=== PATIENT | female | born 1985 | race Caucasian/White ===

== ENCOUNTER 2017-12-24 15:35 | Observation (INO) | payer MEDICAID ==
[~2017-12-24 15:35] MED LIST: IBUPROFEN600 MG PO; PERCOCET 5-3251 TAB PO; PRENATAL COMPLE1 TAB PO
[2017-12-24 18:59] LABS: ALBUMIN 2.9 g/dL (3.4-5.0); ALKALINE PHOSPHATASE 100 U/L (46-116); ALT (SGPT) 19 U/L (10-68); CALC OSMOLALITY 269 mosm/kg (275-300); CALCIUM 8.4 mg/dL (8.5-10.1); CARBON DIOXIDE 21.6 mmol/L (21.0-32.0); CHLORIDE - SERUM 105 mmol/L (98-107); CREATININE - SERUM 0.8 mg/dL (0.6-1.3); GLUCOSE 80 mg/dL (74-106); POTASSIUM - SERUM 3.8 mmol/L (3.5-5.1); PROTEIN - SERUM 6.8 g/dL (6.4-8.2); SODIUM 136 mmol/L (136-145); UREA NITROGEN 11 mg/dL (7-18); eGFR NON AFRICAN AMERICAN 87 mL/min (90-120)
[2017-12-24 19:12] LABS: BASOPHILS 0.2 % (0-2); HEMOGLOBIN 13.3 g/dL (12-16); IMMATURE GRANULOCYTES 1.4 % (0-5); LYMPHOCYTES 14.6 % (15-50); MCH 31.1 pg (26.0-34.0); MCHC 34.1 g/dL (31.0-37.0); MCV 91.1 fL (80.0-100.0); MEAN PLATELET VOLUME 11.4 fL (7.4-10.4); MONOCYTES 4.7 % (2-11); NEUTROPHILS 78.1 % (40-80); PLATELET COUNT 208 10x3/uL (130-400); RBC 4.28 10x6/uL (4.00-5.40); RDW 13.6 % (11.5-14.5); WBC 12.1 10x3/uL (4.8-10.8)
[2017-12-24 19:21] LABS: HIV 1 & 2- RAPID SCREEN NEGATIVE (NEGATIVE)
[2017-12-24 19:54] LABS: BILIRUBIN - TOTAL 0.08 mg/dL (0.2-1.3)
[2017-12-24 20:01] LABS: APPEARANCE CLOUDY (CLEAR); COLOR YELLOW (YELLOW); SPECIFIC GRAVITY 1.015 (1.005-1.020)
[2017-12-24 20:02] LABS: BILIRUBIN NEGATIVE (NEGATIVE); GLUCOSE 100 mg/dL (NEGATIVE); KETONE NEGATIVE (NEGATIVE); NITRITE NEGATIVE (NEGATIVE); PROTEIN 1+ mg/dL (NEGATIVE); UROBILINOGEN NORMAL (NORMAL)
[2017-12-24 20:03] LABS: WHITE CELLS - URINE 0-5 /hpf (0-5)
[2017-12-24 20:04] LABS: BACTERIA MODERATE /hpf (NONE SEEN)
[2017-12-24 21:24] LABS: UDS - AMPHET NEGATIVE QUAL (NEGATIVE); UDS - BARB NEGATIVE QUAL (NEGATIVE); UDS - BENZO NEGATIVE QUAL (NEGATIVE); UDS - COCAINE NEGATIVE QUAL (NEGATIVE); UDS - OPIATE NEGATIVE QUAL (NEGATIVE); UDS - PCP NEGATIVE QUAL (NEGATIVE); UDS - THC NEGATIVE QUAL (NEGATIVE)
[2017-12-27 06:15] LABS: RAPID PLASMA REAGIN Non Reactive (Non Reactive)
[2017-12-27 11:15] LABS: HEPATITIS C ANTIBODY <0.1 (0.0-0.9)
[2017-12-27 12:17] LABS: RUBELLA IGG 2.72 index (Immune >0.99)
[2017-12-28 21:08] LABS: CHLAMYDIA TRACHOMATIS, NAA Negative (Negative)
== END 2017-12-25 19:35 | disposition home or self-care (01) ==
LOC: D.LDO 15:35 → D.LD 23:12 → OBSVTIME 12-25 01:50 → D.LD 12-25 19:35 → D.LDO 12-25 19:35
PROVIDERS: Obstetrics & Gynecology
DX: O26.893 Other specified pregnancy related conditions, third trimester (principal); Z3A.39 39 weeks gestation of pregnancy

== ENCOUNTER → 2018-01-20 16:45 | Outpatient (CLI) | payer MEDICAID ==
[~2018-01-20] VITALS: Ht 161.3 cm; Wt 81.6 kg
[2018-01-20 17:07] VITALS: BP 111/60; Ht 161.3 cm; Wt 81.6 kg
== END | disposition home or self-care (01) ==
LOC: D.LDO 16:45 → D.LABREF 16:45
DX: O26.893 Other specified pregnancy related conditions, third trimester (principal); Z3A.38 38 weeks gestation of pregnancy

== ENCOUNTER 2018-01-31 07:15 | Inpatient (IN) | payer MEDICAID ==
[~2018-01-31] VITALS: Ht 161.3 cm; Wt 81.6 kg
--- NOTE | ~2018-01-31 | DS ---
PATIENT:JAVIER PHELPS :83 MEDICAL RECORD: [id number] DISCHARGE SUMMARY ADMISSION DATE: 01/31/18 DISCHARGE DATE: 02/01/18 DATE OF ADMISSION: 01/31/2018 DATE OF DISCHARGE: 02/01/2018 ADMISSION DIAGNOSIS: Active labor at term. DISCHARGE DIAGNOSIS: Mother delivered at term. PROCEDURE: Vaginal delivery. ATTENDING: Rocío Mendieta MD HISTORY OF PRESENT ILLNESS AND SUMMARY OF HOSPITALIZATION: Please see the H&P in the chart. The patient was admitted in active labor on the . The patient went on to deliver vaginally without an epidural. At the time of discharge, she is doing well with no complaints of pain. The patient will receive Depo-Provera for her contraception. Standard precautions have been reviewed, and she has been asked to follow up in the clinic in 6 weeks. TRANSINT:[id number] Voice Confirmation ID: [id number] DOCUMENT ID: [id number] ROCÍO MENDIETA MD at 1731 CC: [id number] DICTATION DATE: 02/01/18 1227 FINISHING MACHINE OPERATOR AUTOMATIC: 02/02/18 0050 DIS IN 02/01/18 [id number] [place] [address]
--- NOTE | ~2018-01-31 | OP ---
PATIENT NAME: JAVIER PHELPS MEDICAL RECORD: [id number] :83 LOCATION:[id number] ADMISSION DATE:01/31/18 SURGEON: INOCENTE WILKINSON MD DATE OF OPERATION: 01/31/2018 DELIVERY NOTE PREDELIVERY DIAGNOSIS: Active labor at 40 weeks. POSTDELIVERY DIAGNOSES: 1. Active labor at 40 weeks. 2. Shoulder dystocia. PROCEDURE: Vaginal with alleviation of shoulder dystocia. ATTENDING SURGEON: Inocente Wilkinson MD ANESTHETIC: None. FINDINGS: Female , vertex presentation, Apgars are 9 and 9. Shoulder dystocia alleviated with Korey and suprapubic pressure. Standard gentle attempt at traction without increased force is attempted and fundal pressure was applied. Placenta is delivered spontaneous and intact. No laceration. ESTIMATED BLOOD LOSS: 300 cc. DISPOSITION: Mother and infant recovered in the room. TRANSINT:[id number] Voice Confirmation ID: [id number] DOCUMENT ID: [id number] INOCENTE WILKINSON MD at 1631 CC: [id number] DICTATION DATE: 02/24/18 1326 FIRE CHIEF DEPUTY: 02/24/18 1520 DIS IN 02/01/18 [facility] [address] [place] [address]
[2018-01-31 08:58] LABS: HEMATOCRIT 38.5 % (36.0-48.0); HEMOGLOBIN 13.2 g/dL (12-16); MCHC 34.3 g/dL (31.0-37.0); MCV 93.2 fL (80.0-100.0); MEAN PLATELET VOLUME 12.2 fL (7.4-10.4); RBC 4.13 10x6/uL (4.00-5.40); RDW 14.2 % (11.5-14.5); WBC 19.2 10x3/uL (4.8-10.8)
[2018-01-31 11:13] LABS: UDS - AMPHET NEGATIVE QUAL (NEGATIVE); UDS - BARB NEGATIVE QUAL (NEGATIVE); UDS - BENZO NEGATIVE QUAL (NEGATIVE); UDS - COCAINE NEGATIVE QUAL (NEGATIVE); UDS - OPIATE NEGATIVE QUAL (NEGATIVE); UDS - PCP NEGATIVE QUAL (NEGATIVE)
[2018-01-31 11:28] LABS: UDS - THC POSITIVE QUAL (NEGATIVE)
[2018-01-31 12:22] VITALS: BP 134/85; Ht 161.3 cm; Wt 81.6 kg
[2018-01-31 12:30] VITALS: BP 132/85
[2018-01-31 19:30] VITALS: BP 120/70
[2018-02-01 06:12] LABS: BASOPHILS 0.2 % (0-2); EOSINOPHILS 1.3 % (0-7); HEMATOCRIT 35.8 % (36.0-48.0); IMMATURE GRANULOCYTES 1.7 % (0-5); LYMPHOCYTES 13.4 % (15-50); MCH 31.3 pg (26.0-34.0); MCHC 33.5 g/dL (31.0-37.0); MCV 93.5 fL (80.0-100.0); MEAN PLATELET VOLUME 11.5 fL (7.4-10.4); MONOCYTES 4.5 % (2-11); NEUTROPHILS 78.9 % (40-80); PLATELET COUNT 194 10x3/uL (130-400); RBC 3.83 10x6/uL (4.00-5.40); RDW 14.4 % (11.5-14.5); WBC 16.8 10x3/uL (4.8-10.8)
[2018-02-01 07:25] VITALS: BP 117/72
[2018-02-01 07:32] LABS: RAPID PLASMA REAGIN Non Reactive (Non Reactive)
[2018-02-03 13:20] LABS: UDSC - AMPHET Negative ng/mL (Cutoff=1000); UDSC - BARB Negative ng/mL (Cutoff=300); UDSC - BENZO Negative ng/mL (Cutoff=300); UDSC - COC Negative ng/mL (Cutoff=300); UDSC - METH Negative ng/mL (Cutoff=300); UDSC - OPIATES Negative ng/mL (Cutoff=300); UDSC - PCP Negative ng/mL (Cutoff=25); UDSC - PROPOXY Negative ng/mL (Cutoff=300); UDSC - THC Positive (Cutoff=50)
== END 2018-02-01 15:55 | disposition home or self-care (01) | DRG 807 ==
LOC: D.LD 07:15
PROVIDERS: Obstetrics & Gynecology
PROC: 10E0XZZ Delivery of Products of Conception, External Approach (ICD-10-PCS; principal; 2018-01-31)
DX: O48.0 Post-term pregnancy (principal); O99.334 Smoking (tobacco) complicating childbirth; O66.0 Obstructed labor due to shoulder dystocia; Z37.0 Single live birth; Z3A.40 40 weeks gestation of pregnancy

== ENCOUNTER 2019-11-18 18:18 | Inpatient (IN) | payer MEDICAID ==
[~2019-11-18] VITALS: Ht 161.3 cm; Wt 88.6 kg
[2019-11-18] MEDS ORDERED: PREPLUS CA-FE1 EACH PO (18:28)
[2019-11-18 18:29] VITALS: BP 119/70; BMI 52.1
[2019-11-18 19:05] LABS: UDS - AMPHET NEGATIVE QUAL (NEGATIVE); UDS - BARB NEGATIVE QUAL (NEGATIVE); UDS - BENZO NEGATIVE QUAL (NEGATIVE); UDS - COCAINE NEGATIVE QUAL (NEGATIVE); UDS - OPIATE NEGATIVE QUAL (NEGATIVE); UDS - PCP NEGATIVE QUAL (NEGATIVE); UDS - THC NEGATIVE QUAL (NEGATIVE)
[2019-11-18 19:32] LABS: HEMATOCRIT 36.2 % (36.0-48.0); MCH 31.1 pg (26.0-34.0); MCHC 33.1 g/dL (31.0-37.0); MCV 93.8 fL (80.0-100.0); MEAN PLATELET VOLUME 11.3 fL (7.4-10.4); RBC 3.86 10x6/uL (4.00-5.40); RDW 14.1 % (11.5-14.5)
--- NOTE | 2019-11-19 21:09 | NUR ---
FUNDUS PALPATED AND FIRM ABOUT AN INCH ABOVE UMBILICUS. NO BLEEDING NOTED.
[2019-11-20 01:38] VITALS: BP 116/55; Ht 161.3 cm; Wt 88.6 kg
--- NOTE | 2019-11-20 02:52 | NUR ---
PACIFIER TAKEN TO MOTHER FOR , MOTHER IN BED WITH INFANT IN ARMS BONDING
[2019-11-20 07:03] LABS: HEMATOCRIT 36.2 % (36.0-48.0); HEMOGLOBIN 11.9 g/dL (12-16); MCH 30.7 pg (26.0-34.0); MCHC 32.9 g/dL (31.0-37.0); MCV 93.5 fL (80.0-100.0); MEAN PLATELET VOLUME 11.3 fL (7.4-10.4); RBC 3.87 10x6/uL (4.00-5.40); RDW 14.2 % (11.5-14.5); WBC 12.8 10x3/uL (4.8-10.8)
[2019-11-20 07:15] VITALS: BP 123/64
[2019-11-20 07:15] LABS: RAPID PLASMA REAGIN Non Reactive (Non Reactive)
--- NOTE | 2019-11-20 07:30 | NUR ---
AM ASSESSMENT COMPLETED, SEE FLOWSHEET. FUNDUS FIRM, U/1, SMALL RUBRA LOCHIA, NO CLOTS. ZHOU CATH REMOVED WITH 200 MLS DARK YELLOW URINE. LARGE ICE WATER SERVED TO PT. PT DENIES ALL OTHER NEEDS AT THIS TIME. SEE EMAR FOR ALL MEDS ADM BY THIS RN. SRUP X2, CALL LIGHT AND PHONE WITHIN REACH.
--- NOTE | 2019-11-20 10:00 | NUR ---
PT ASSISTED WITH TRANSFER TO ROOM 1257, ORIENTED TO ROOM. SR UP X1, CALL LIGHT AND PHONE WITHIN REACH. PT SERVED LARGE GLASS OF ICE WATER. SEE EMAR FOR ALL MEDS ADM BY THIS RN.
--- NOTE | 2019-11-20 11:30 | NUR ---
PT UP TO BR, PER SELF. VOIDS 150 MLS YELLOW URINE IN [place] HAT. PADMINI CARE DONE PER SELF WITH PERSONAL CARE ITEMS PROVIDED. PT THEN BACK TO BED. SR UP X1, CALL LIGHT AND PHONE WITHIN REACH. PT DENIES ALL NEEDS AT THIS TIME. DRESSING REMAINS OVER INCISION. AWAITING MD ROUNDS TODAY. MEDICATION ADM RECORD REVIEWED WITH PT.
--- NOTE | 2019-11-20 12:49 | OP ---
PATIENT NAME: JAVIER PHELPS MEDICAL RECORD: [id number] :83 LOCATION:[facility] ADMISSION DATE:11/18/19 SURGEON: INOCENTE MENDIETA MD DATE OF OPERATION: 11/19/2019 PREOPERATIVE DIAGNOSES: 1. at 39 weeks' gestation. 2. Arrest of descent. POSTOPERATIVE DIAGNOSES: 1. at 39 weeks' gestation. 2. Arrest of descent. PROCEDURE: Primary low transverse section. SURGEON: Inocente Mendieta MD [employer] SPECIALIST: Alex Trotter. REED DIPPER: LAY [place]. ANESTHESIA: Continuous lumbar epidural. FINDINGS: Viable male , OP presentation, Apgars 9 and 9, weight 3776 grams. Unremarkable uterus, tubes, and ovaries. SPECIMENS REMOVED: Placenta. SPECIMEN DISPOSITION: Discarded. ESTIMATED BLOOD LOSS: 800 cc. FLUIDS: 3 liters lactated Ringer's. URINE OUTPUT: 150 cc of clear urine. COMPLICATIONS: None. DRAINS: Quiroz to gravity. INDICATIONS: The patient is a 34-year-old G5, para 4 in second stage of labor without further descent and increased caput swelling. The patient was diagnosed with arrest of descent and consented for a primary low transverse section. DESCRIPTION OF PROCEDURE: After informed consent was assured, the patient was taken to the operating room, anesthetic was obtained. The patient is now prepped and draped in the usual sterile fashion. After assessment of the anesthetic and found to be adequate, a Pfannenstiel skin incision was made in the abdomen and entered. Low transverse hysterotomy was performed and was delivered out of the abdomen atraumatically. The 's cord was doubly clamped and cut and passed to the attendant. The placenta was delivered Crede maneuver and uterus exteriorized, cleared of all clot and debris and closed with a running stitch of Vicryl. Interrupted [id number] stitches were applied to obtain hemostasis at the corners. The Paolo and Gelfoam was now placed on OPERATIVE REPORT [id number] JAVIER PHELPS the low transverse incision. The uterus has been returned to the abdomen. The fascia was closed with a running stitch of PDS. The subcutaneous tissue was irrigated. Bleeding vessels cauterized and the skin closed with thaddeus. Sponge, lap, needle counts were correct times 2. TRANSINT:[id number] Voice Confirmation ID: [id number] DOCUMENT ID: [id number] INOCENTE MENDIETA MD at 1249 CC: [id number] DICTATION DATE: 11/19/192033 [address] JUDGE: 11/20/19 0257 ADM IN [facility] [address] [id number]
--- NOTE | 2019-11-20 13:20 | MORECARE ---
CASE MANAGEMENT DISCHARGE SUMMARY PATIENT: JAVIER PHELPS UNIT: [id number] ADM DATE: 11/18/19 AGE: 34 : 83 SEX: F ROOM/BED: D.1257 AUTHOR: WILMA CLEMENT PHYSICIAN: REFERRING PHYSICIAN: ROCÍO MENDIETA MD DATE OF SERVICE: 11/20/19 Discharge Plan Patient Name: JAVIER PHELPS Facility: [facility]:[place] : 1985 Planned Disposition: Anticipated Discharge Date: Discharge Date: Expected LOS: Initial Reviewer: [email or web address] Initial Review Date: 11/18/2019 Generated: 11/20/19 2:19 pm Patient Name: JAVIER PHELPS Page [phone] at 1320 All edits/amendments must be made on the electronic document DICTATION DATE: 11/20/19 1319 UI DEVELOPER: ED 11/20/19 1319 RPT#: [id number] DC DATE: STATUS: ADM IN [facility] [address] [place] [address] END OF REPORT
--- NOTE | 2019-11-20 15:00 | NUR ---
PT UP TO SHOWER, PROVIDED WITH CLEAN LINENS, PERIPADS/PANTIES. PT DENIES ALL OTHER NEEDS AT THIS TIME. SR UP X2, CL/PHONE WITHIN REACH.
--- NOTE | 2019-11-20 17:00 | NUR ---
DIETARY SERVES SUPPER TRAY, PT DENIES ALL NEEDS.
[2019-11-20 19:15] VITALS: BP 118/62
--- NOTE | 2019-11-20 19:15 | NUR ---
ASSESSMENT PER FLOW SHEET, VS OBTAINED, SALINE LOCK TO LEFT WRIST INTACT WITH NO REDNESS OR EDEMA, FF, ML, U/1, PT REPORTS LITE BLEEDING WITH NO CLOTS, BIKINI INC WITH AGNES CDI WITH NO DRAIANGE NOTED, PADMINI PAD OVER INC FOR COMFORT AND MOISTURE CONTROL, PT REPORTS FLATUS, NO BM AND VOIDING WITH NO DIFFICULTY, PT RATES INC PAIN 09/04, INFORMED PT THAT I WILL CHECK TO SEE WHEN PAIN MED WAS DUE, AND WILL ADM IT THEN, PT VERBALIZES UNDERSTANDING, REQUESTED AND SERVED FRESH H20, DENIES FURTHER NEEDS, INFANT TO ARMS FOR
--- NOTE | 2019-11-20 20:24 | NUR ---
PT UP IN ROOM, GETTING READY TO GO BACK TO BED,INFANT IN NSY, ADM TORADOL PO PER MD ORDERS, SEE EMAR, DENIES FURTHER NEEDS
--- NOTE | 2019-11-20 21:24 | NUR ---
PT RESTING IN BED, RATES PAIN 4-5/10, INFORMED PT THAT I WILL BRING PAIN MED IN WHEN DUE, PT VERBALIZES UNDERSTANDING, DENIES NEEDS AT THIS TIME, IN OPEN CRIB CART AT BEDSIDE
--- NOTE | 2019-11-20 22:08 | NUR ---
PT , C/O INC AND GAS PAIN, ADM PAIN MED AND MYLICON PER MD ORDERS, SEE EMAR, PT DENIES FURTHER NEEDS, FOB AT BEDSIDE
--- NOTE | 2019-11-21 00:25 | NUR ---
PT GETTING UP TO BR, INFORMED PT THAT I WILL BE BACK AROUND 1:30 TO ADM TORADOL AND I WILL OBTAIN VITALS AT THAT TIME, PT VERBALIZES UNDERSTANDING, DENIES NEEDS AT THIS TIME, INFANT IN OPEN CRIB CART AND FOB ASLEEP AT BEDSIDE
[2019-11-21 01:28] VITALS: BP 124/71
--- NOTE | 2019-11-21 01:28 | NUR ---
PT RESTING WITH EYES CLOSED, AROUSES TO SOFT VERBAL STIMULATION, VS OBTAINED, ADM TORADOL PO PER MD ORDERS, SEE EMAR, INFANT TO PT'S ARMS FOR , PT DENIES FURTHER NEEDS, FOB ASLEEP AT BEDSIDE
--- NOTE | 2019-11-21 02:07 | NUR ---
PT , ADM PAIN MED PER MD ORDERS, SEE EMAR, PT DENIES FURTHER NEEDS, FOB AT BEDSIDE
--- NOTE | 2019-11-21 04:29 | NUR ---
PT RESTING WITH EYES CLOSED, RESP QUIET, NO DISTRESS NOTED, LEFT UNDISTURBED AT THIS TIME, IN OPEN CRIB CART AND FOB ASLEEP AT BEDSIDE
--- NOTE | 2019-11-21 06:17 | NUR ---
PT AWAKE, ADM PERCOCET PER MD ORDERS, SEE EMAR, PT DENIES FURTHER NEEDS, INFANT IN OPEN CRIB CART AND FOB AT BEDSIDE
--- NOTE | 2019-11-21 06:45 | NUR ---
REPORT RECEIVED FROM Ministerio MELTON RN.
[2019-11-21 08:25] VITALS: BP 120/66
--- NOTE | 2019-11-21 08:25 | NUR ---
TO ROOM FOR ASSESSMENT. PT SITTING UP IN BED. IN CRIB AT BEDSIDE. MALE VISITOR PRESENT. ASSESSMENT COMPLETED. SEE FLOWSHEET. PT STATES SHE HAD A BM THIS MORNING WITHOUT DIFFICULTY. TOLERATING REGULAR DIET WELL. NO COMPLAINTS OF PAIN AT THIS TIME. PT STATES TORADOL WORKED VERY WELL FOR PAIN. NO QUESTIONS OR CONCERNS VOICED AT THIS TIME.
--- NOTE | 2019-11-21 10:34 | NUR ---
ROUNDS MADE. PT RESTING IN BED, LIGHTS LOW. INFANT AT BEDSIDE IN OPEN CRIB. NO NEEDS OR CONCERNS VOICED AT THIS TIME.
--- NOTE | 2019-11-21 11:45 | NUR ---
PT REQUEST MEDICATION FOR PAIN.
--- NOTE | 2019-11-21 13:30 | NUR ---
ROUNDS MADE. PT. AMBULATING IN ROOM. SCHEDULED TORADOL GIVEN. NO OTHER NEEDS VOICED AT THIS TIME.
--- NOTE | 2019-11-21 15:45 | NUR ---
DR. MENDIETA HERE FOR ROUNDS. IN TO SEE PATIENT. ORDERS RECEIVED.
[2019-11-21] MEDS ORDERED: PERCOCET 7.5/321 TAB PO (16:25)
[2019-11-21] MEDS ORDERED: IBUPROFEN800 MG PO ×2 (16:25)
--- NOTE | 2019-11-21 16:50 | NUR ---
REVIEWED DISCHARGE INSTRUCTIONS WITH PATIENT. STATES UNDERSTANDING. FOLLOW-UP APPOINTMENT GIVEN FOR 11/26/19 @ 5900. PRESCRIPTIONS GIVEN. IV D/C'D; CATHETER INTACT, BANDAGE APPLIED. DEPO SHOT GIVEN.
--- NOTE | 2019-11-21 17:25 | NUR ---
PT DISCHARGED HOME VIA WHEELCHAIR TO PRIVATE VEHICLE WITH FAMILY MEMBER ACCOMPANIED BY HOSPITAL STAFF.
--- NOTE | 2019-11-23 16:45 | MORECARE ---
CASE MANAGEMENT DISCHARGE SUMMARY PATIENT: JAVIER PHELPS UNIT: [id number] ADM DATE: 11/18/19 AGE: 34 : 83 SEX: F ROOM/BED: D.1257 AUTHOR: WILMA CLEMENT PHYSICIAN: REFERRING PHYSICIAN: ROCÍO MENDIETA MD DATE OF SERVICE: 11/23/19 Discharge Plan Patient Name: JAVIER PHELPS Facility: [facility]:[place] : 1985 Planned Disposition: Home Anticipated Discharge Date: 11/21/19 Discharge Date: 11/21/2019 Expected LOS: 3 Initial Reviewer: [email or web address] Initial Review Date: 11/18/2019 Generated: 11/23/19 5:45 pm Last DP export: 11/20/19 12:20 p Patient Name: JAVIER PHELPS Page [phone] at 1645 All edits/amendments must be made on the electronic document DICTATION DATE: 11/23/191644 EDGER AUTOMATIC: ED 11/23/191644 RPT#: [id number] DC DATE:11/21/19 STATUS: DIS IN [facility] [address] [place] [address] END OF REPORT
== END 2019-11-21 17:29 | disposition home or self-care (01) | DRG 788 ==
LOC: D.LD 18:18
PROVIDERS: ADMIT Obstetrics & Gynecology; ATTEND Obstetrics & Gynecology
PROC: 10907ZC Drainage of Amniotic Fluid, Therapeutic from Products of Conception, Via Natural or Artificial Opening (ICD-10-PCS; 2019-11-19)
PROC: 3E033VJ Introduction of Other Hormone into Peripheral Vein, Percutaneous Approach (ICD-10-PCS; 2019-11-19)
PROC: 10D00Z1 Extraction of Products of Conception, Low, Open Approach (ICD-10-PCS; principal; 2019-11-19 19:40)
DX: O62.1 Secondary uterine inertia (principal); Z3A.39 39 weeks gestation of pregnancy; Z37.0 Single live birth